=== PATIENT | male | born 1975 | race Caucasian/White ===

== ENCOUNTER → 2019-01-15 | Outpatient (CLI) | payer OTHER ==
[2019-01-15 14:11] LABS: BASO # 0.1 10^3/uL (0.0-0.2); BASO % 0.8 % (0.0-1.0); EOS # 0.2 10^3/uL (0.0-0.50); EOS % 2.7 % (0.0-3.0); HEMOGLOBIN 15.5 g/dl (13.5-17.5); LYMPH # 1.7 10^3/uL (1.5-4.5); LYMPH % 27.2 % (24.0-44.0); MEAN CORPUSCULAR HEMOGLOBIN 30.3 pg (27.0-33.0); MEAN CORPUSCULAR HGB CONC 33.7 g/dl (32.0-36.5); MEAN CORPUSCULAR VOLUME 89.8 fl (80.0-96.0); MONO # 0.5 10^3/uL (0.0-0.8); MONO % 8.2 % (0.0-5.0); NEUTROPHILS # 3.8 10^3/uL (1.8-7.7); NEUTROPHILS % 60.9 % (36.0-66.0); PLATELET COUNT, AUTOMATED 380 10^3/uL (150-450); RED BLOOD COUNT 5.12 10^6/uL (4.30-6.10); WHITE BLOOD COUNT 6.2 10^3/uL (4.0-10.0)
[2019-01-15 14:20] LABS: ALBUMIN 3.8 GM/DL (3.2-5.2); ALT/SGPT 35 U/L (12-78); BILIRUBIN,TOTAL 0.4 MG/DL (0.2-1.0); BLOOD UREA NITROGEN 18 MG/DL (7-18); CALCIUM LEVEL 8.7 MG/DL (8.5-10.1); CARBON DIOXIDE LEVEL 28 MEQ/L (21-32); CHLORIDE LEVEL 107 MEQ/L (98-107); CHOLESTEROL LEVEL 187 MG/DL (<200); CHOLESTEROL RISK RATIO 2.174 (<5); CREATININE FOR GFR 1.12 MG/DL (0.70-1.30); GLOMERULAR FILTRATION RATE > 60.0 (>60); GLUCOSE, FASTING 92 MG/DL (70-100); HDL CHOLESTEROL 86 MG/DL (>40); LDL CHOLESTEROL 91 MG/DL (<100); NON-HDL-C 101 MG/DL; POTASSIUM SERUM 4.7 MEQ/L (3.5-5.1); SODIUM LEVEL 140 MEQ/L (136-145); TRIGLYCERIDES LEVEL 49 MG/DL (<150)
== END ==
LOC: M WUC 10:09
PROVIDERS: ATTEND Nurse Practitioner Family
DX: F90.2 Attention-deficit hyperactivity disorder, combined type (principal); Z13.220 Encounter for screening for lipoid disorders

== ENCOUNTER 2019-06-13 22:54 | Emergency (ER) | payer BC, OTHER ==
[~2019-06-13] VITALS: Ht 175.3 cm; Wt 68.2 kg
[2019-06-13] MEDS ORDERED: ADDE30CA3 PO (22:59)
[2019-06-13] MEDS ORDERED: ALPR1TAB3 PO (22:59)
[2019-06-13] MEDS ORDERED: LIDOCAINE 1% MDV 20ML VIAL IM ONE (23:30)
[2019-06-14 00:34] VITALS: BP 144/82
== END 2019-06-14 00:37 | disposition home or self-care (01) ==
LOC: M ED 22:54
DX: S01.81XA Laceration without foreign body of other part of head, initial encounter (principal); W22.8XXA Striking against or struck by other objects, initial encounter; Y92.019 Unspecified place in single-family (private) house as the place of occurrence of the external cause; Y93.89 Activity, other specified; Z79.899 Other long term (current) drug therapy

== ENCOUNTER → 2021-12-09 | Outpatient (CLI) | payer BC, OTHER ==
[~2021-12-09] MED LIST: ADDE30CA3 PO; ALPR1TAB3 PO
[2021-12-09 12:12] LABS: BASO % 0.7 % (0.0-1.0); EOS # 0.2 10^3/uL (0.0-0.5); EOS % 2.5 % (0.0-3.0); HEMATOCRIT 48.8 % (42.0-52.0); HEMOGLOBIN 16.1 g/dl (13.5-17.5); LYMPH % 33.7 % (24.0-44.0); MEAN CORPUSCULAR HEMOGLOBIN 29.5 pg (27.0-33.0); MEAN CORPUSCULAR VOLUME 89.5 fl (80.0-96.0); MONO # 0.5 10^3/uL (0.0-0.8); MONO % 8.3 % (2.0-8.0); NEUTROPHILS # 3.2 10^3/uL (1.5-8.5); NEUTROPHILS % 54.6 % (36.0-66.0); PLATELET COUNT, AUTOMATED 339 10^3/uL (150-450); RED BLOOD COUNT 5.45 10^6/uL (4.30-6.10); WHITE BLOOD COUNT 5.9 10^3/uL (4.0-10.0)
[2021-12-09 12:50] LABS: ALBUMIN 3.8 GM/DL (3.2-5.2); ALT/SGPT 29 U/L (12-78); BILIRUBIN,TOTAL 0.5 MG/DL (0.2-1.0); BLOOD UREA NITROGEN 17 MG/DL (7-18); CALCIUM LEVEL 9.5 MG/DL (8.5-10.1); CARBON DIOXIDE LEVEL 28 MEQ/L (21-32); CHLORIDE LEVEL 105 MEQ/L (98-107); CHOLESTEROL LEVEL 213 MG/DL (<200); CHOLESTEROL RISK RATIO 2.917 (<5); CREATININE FOR GFR 1.26 MG/DL (0.70-1.30); GLOMERULAR FILTRATION RATE > 60.0 (>60); GLUCOSE, FASTING 127 MG/DL (70-100); HDL CHOLESTEROL 73 MG/DL (>40); LDL CHOLESTEROL 125 MG/DL (<100); NON-HDL-C 140 MG/DL; POTASSIUM SERUM 4.4 MEQ/L (3.5-5.1); SODIUM LEVEL 141 MEQ/L (136-145); TOTAL PROTEIN 6.9 GM/DL (6.4-8.2); TRIGLYCERIDES LEVEL 75 MG/DL (<150)
[2021-12-09 13:16] LABS: HEMOGLOBIN A1c 5.5 %
== END ==
LOC: M WUC 09:57
PROVIDERS: ATTEND Physician Assistant
DX: F41.9 Anxiety disorder, unspecified (principal); Z13.220 Encounter for screening for lipoid disorders; A69.20 Lyme disease, unspecified; Z13.1 Encounter for screening for diabetes mellitus

== ENCOUNTER 2023-06-17 19:41 | Emergency (ER) | payer BC, OTHER ==
[~2023-06-17] VITALS: Ht 175.3 cm; Wt 76.2 kg
[2023-06-17] MEDS ORDERED: LIDOCAINE 2% MDV 20ML VIAL SC ONE (22:40)
[2023-06-17] MEDS ORDERED: CEPHALEXIN 500 MG CAP PO ONE (23:00)
[2023-06-17] MEDS ORDERED: NEOSPORIN OINT 0.9 GM PKT TOP ONE (23:00)
[2023-06-17] MEDS ORDERED: CEPH500C PO (23:07)
[2023-06-17 23:10] VITALS: BP 151/94; TEMP 97; O2SAT 95
== END 2023-06-17 23:15 | disposition home or self-care (01) ==
LOC: M ED 19:41
DX: S61.211A Laceration without foreign body of left index finger without damage to nail, initial encounter (principal); W31.2XXA Contact with powered woodworking and forming machines, initial encounter; F41.9 Anxiety disorder, unspecified; F10.10 Alcohol abuse, uncomplicated; Y92.009 Unspecified place in unspecified non-institutional (private) residence as the place of occurrence of the external cause; Y93.89 Activity, other specified; Y99.9 Unspecified external cause status; Z79.2 Long term (current) use of antibiotics

== ENCOUNTER 2024-04-24 07:46 | Day surgery (SDC) | payer BC ==
[~2024-04-24] VITALS: Ht 175.3 cm; Wt 73.3 kg
[~2024-04-24 07:46] MED LIST changes: +AMPH1CAP5 PO; +CEPH500C PO; +LEXA1TAB PO
[2024-04-24] MEDS: NS 1,000 ML IV ONE (08:25)
[2024-04-24] MEDS ORDERED: propofoL 200 MG/20 ML VIAL As Ordered ONE (09:00)
[2024-04-24] MEDS ORDERED: LIDOCAINE 2% 100MG/5ML SDV (FOR ANES.) As Ordered ONE (09:00)
[2024-04-24 10:33] VITALS: TEMP 97.8
[2024-04-24 10:49] VITALS: BP 135/91; O2SAT 97
== END 2024-04-24 10:51 | disposition home or self-care (01) ==
LOC: M OPP 07:46
PROVIDERS: ATTEND Surgery
DX: D12.3 Benign neoplasm of transverse colon (principal); F10.10 Alcohol abuse, uncomplicated; F41.9 Anxiety disorder, unspecified; Z79.899 Other long term (current) drug therapy